=== PATIENT | female | born 1985 | race American Indian/Alaskan Native ===

== ENCOUNTER 2018-09-28 07:00 | Outpatient (CLI) | payer BC ==
--- NOTE | 2018-09-28 08:44 | Progress Note ---
Assessment and Plan A: at 40 weeks, 1 day gestation. Early labor versus false labor. Category 1 heart rate tracing. Not in active labor at this time. P: Patient requested to go home and return when in active labor. Discussed warning signs and signs of active labor with pt. Subjective - Subjective Date of service: 09/28/18 Interval history: at 40 weeks, 1 day gestation; rule out labor. Patient reports: contractions, no loss of fluid, no vaginal bleeding, no movement normal Objective - Vital Signs Vital Signs: Vital Signs - 12hr 09/28/18 09/28/18 09/28/18 07:19 07:24 07:28 Temperature 98.2 F Pulse Rate 69 80 Respiratory 16 Rate O2 Sat by Pulse 100 98 Oximetry 09/28/18 09/28/18 09/28/18 07:29 07:34 07:39 Temperature Pulse Rate 74 76 74 Respiratory Rate O2 Sat by Pulse 98 98 98 Oximetry 09/28/18 07:44 Temperature Pulse Rate 89 Respiratory Rate O2 Sat by Pulse 98 Oximetry - Exam Abdomen: Present: normal appearance, soft. Absent: distention, tenderness, guarding, rigidity Uterus: Present: normal, fundal height above umbilicus. Absent: bogginess, tenderness FHR: category 1 Uterine Contraction Monitor Mode: External Cervical Dilatation: 2.5 Cervical Effacement Percentage: 80 station: -2 Uterine Contraction Pattern: Irregular Uterine Contraction Intensity: Mild Extremities: normal
== END 2018-09-28 08:01 | disposition home or self-care (01) ==
LOC: TRG 07:00
PROVIDERS: ATTEND Obstetrics & Gynecology
DX: O62.8 Other abnormalities of forces of labor (principal); Z3A.40 40 weeks gestation of pregnancy
CPT/HCPCS: 59025

== ENCOUNTER 2018-09-28 20:04 | Inpatient (IN) | payer BC ==
[2018-09-28] MEDS ORDERED: SUBLIMAZE IV PRN (22:59)
[2018-09-28] MEDS ORDERED: XYLOCAINE 2% INFILTRATI ONE (22:59)
[2018-09-28] MEDS ORDERED: PITOCin/NS 20 UNIT/1000ML DRIP 20 UNITS/1,000 ML BAG IV SCH (23:00)
[2018-09-28] MEDS ORDERED: PITOCin/NS 30 UNIT/500ML 30 UNITS/500 ML BAG IV SCH ×2 (23:00→23:23)
--- NOTE | 2018-09-28 23:34 | History and Physical Report ---
History of Present Illness Date of examination: 09/28/18 Date of admission: 09/28/18 22:15 Chief complaint: Leaking of fluid from vagina. History of present illness: 33 year old presents to L&D with complaint of leaking clear fluid from vagina since 6:00 PM today. Patient denies vaginal bleeding. Patient reports contractions. Patient reports active movement. Patient received care at [facility] and records are available. LMP 12/21/2017. EDC 09/27/2018 (based on LMP and confirmed by 9 week US). significant for the following: anemia (supplemented with iron). labs are as follows: O+, antibody screen negative, pap smear normal, rubella immune, RPR nonreactive, HIV negative, hepatitis B surface antigen negative, hemoglobin AA, GC/CT negative, trichomonas negative, diabetes screen 105, GBS negative. 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 denies: smoking, alcohol abuse, prescription drug abuse, IV drug use - Obstetrical History Expected Date of Delivery: 09/27/18 Actual Gestation: 40 Week(s) 1 Day(s) : 1 Para: 0 Hx # Term Pregnancies: 1 Number of Pregnancies: 0 Spontaneous Abortions: 0 Induced : 0 Number of Living Children: 0 Medications and Allergies Allergies Allergy/AdvReac Type Severity Reaction Status Date / Time Penicillins Allergy Unknown Verified 09/28/18 20:16 Active Meds: Active Medications Ephedrine Sulfate (Ephedrine Sulfate) 10 mg IV Q2M PRN PRN Reason: Hypotension Fentanyl (Sublimaze) 100 mcg IV Q2H PRN PRN Reason: Labor Pain Lactated Ringer's (Lactated Ringers) 1,000 mls @ 125 mls/hr IV DIRECT MARGARETH Oxytocin/Sodium Chloride (Pitocin/Ns 20 Unit/1000ml Drip) 20 units in 1,000 mls @ 125 mls/hr IV DIRECT MARGARETH Oxytocin/Sodium Chloride (Pitocin/Ns 30 Unit/500ml) 30 units in 500 mls @ 2 mls/hr IV Q30MIN MARGARETH; Protocol Review of Systems All systems: negative (leaking of water from vagina) - Vital Signs Vital signs: Vital Signs Pulse BP 77 121/69 09/28/18 20:14 09/28/18 20:14 Temp Pulse Resp BP Pulse Ox 98.4 F 81 16 123/74 09/28/18 23:20 09/28/18 23:22 09/28/18 20:17 09/28/18 23:22 - Physical Exam Abdomen: Positive: normal appearance, soft. Negative: distention, tenderness, guarding, rigidity Genitourinary (Female): Positive: normal external genitalia, normal perenium. Negative: perineal/vulvar lesions Vagina: Positive: other (clear fluid at introitus) Uterus: Positive: enlarged. Negative: tender Anus/Rectum: Positive: normal perianal skin Extremities: Positive: normal. Negative: tenderness, edema - Obstetrical FHR: category 1 Uterine Contraction Monitor Mode: External Cervical Dilatation: 2.5 Cervical Effacement Percentage: 90 station: -1 Uterine Contraction Pattern: Irregular Uterine Contraction Intensity: Mild Results All other labs normal. Assessment and Plan A: at 40 weeks, 1 day gestation. GBS negative. Spontaneous rupture of membranes. Not yet in active labor. P: Admit. EFM. Pitocin augmentation of labor. Discussed with patient Pitocin augmentation of labor. Patient declines Pitocin augmentation of labor at this time; wants to wait until 1 AM to augment labor. Discussed prelabor rupture of membranes and ACOG recommendations with patient.
[2018-09-28 23:56] LABS: Hemoglobin 10.3 gm/dl (10.1-14.3); Mean Corpuscular HGB Conc 33 % (30-34); Mean Corpuscular Volume 86 fl (79-97); Platelet Count 164 K/mm3 (140-440); Red Blood Count 3.59 M/mm3 (3.65-5.03); Red Cell Distribution Width 18.5 % (13.2-15.2)
--- NOTE | 2018-09-29 01:47 | Event Note ---
Date: 09/29/18 SVE no cervical change. Advised patient I have ordered Pitocin for augmentation of labor due to leaking of water and no cervical change. Discussed with patient risks and benefits of Pitocin augmentation of labor. Discussed with patient need for EFM. Discussed with patient risks of PROM without active labor, risks of prolonged ROM including fever, chorioamnionitis with its possible sequelae, infection, etc. Patient declined augmentation of labor at this time. Consulted with Dr. Marc re: this patient and her refusal of labor augmentation.
[2018-09-29] MEDS: LACTATED RINGERS 1,000 ML IV SCH ×2 (02:49→11:40)
--- NOTE | 2018-09-29 08:05 | Progress Note ---
Assessment and Plan A: at 40 weeks, 2 days gestation. SROM. P: Augment labor with Pitocin. Discussed with patient risks and benefits of Pitocin augmentation of labor. Patient consented to Pitocin augmentation of labor. Subjective - Subjective Date of service: 09/29/18 Principal diagnosis: at 40 weeks, 2 days gestation Interval history: at 40 weeks, 2 days gestation with leaking of water. Patient has agreed to Pitocin augmentation of labor. Patient reports: loss of fluid, movement normal, contractions, no new complaints, no vaginal bleeding Objective - Vital Signs Vital Signs: Vital Signs - 12hr 09/28/18 09/28/18 09/28/18 20:14 20:17 23:20 Temperature 98.8 F 98.4 F Pulse Rate 77 77 Respiratory 16 Rate Blood Pressure 121/69 Blood Pressure 121/69 [Left] 09/28/18 23:22 Temperature Pulse Rate 81 Respiratory Rate Blood Pressure 123/74 Blood Pressure [Left] - Exam Abdomen: Present: normal appearance, soft. Absent: distention, tenderness, guarding, rigidity Uterus: Present: normal, fundal height above umbilicus. Absent: tenderness FHR: category 1 Uterine Contraction Monitor Mode: External Uterine Contraction Pattern: Irregular Uterine Contraction Intensity: Moderate Extremities: normal - Labs Labs: Abnormal Labs 09/28/18 23:35 RBC 3.59 L RDW 18.5 H Laboratory Results - last 24 hr 09/28/18 09/28/18 23:35 23:35 WBC 7.0 RBC 3.59 L Hgb 10.3 Hct 31.0 MCV 86 MCH 29 MCHC 33 RDW 18.5 H Plt Count 164 Blood Type O POSITIVE Antibody Screen Negative
--- NOTE | 2018-09-29 17:06 | Event Note ---
Date: 09/29/18 Spoke with patient several times re: need to be able to monitor her contractions and fetus while on Pitocin; patient is standing and sqatting by bed and difficult to trace contractions and FHR. Advised patient that if we cannot trace contractions and fetus, we will have to discontinue the Pitocin. Recommended IUPC and FSE; pt. declined.
--- NOTE | 2018-09-29 18:42 | Operative Report ---
Operative Report Operative Report: Date of procedure: 09/29/2018 Pre-operative diagnosis: 1. Intrauterine of 40-2/7 weeks 2. Prolon ged rupture of membranes. 3. Failure to progress Post-operative diagnosis: Same Procedure name(s): Primary low transverse section Surgeon: Dominic Marc MD International Logistics Analyst: None Anesthesia: Epidural anesthesia by Dr. Lacy EBL: 700 mL's Findings: A 2320 g female Apgars 9 at 1 minute 9 at 5 minutes. Clear amniotic fluid. Normal uterus. Normal tubes and ovaries bilaterally. Procedure: After the patient was prepped and draped in usual sterile fashion, and after satisfactory level of epidural anesthesia was obtained, the skin knife was used to make a transverse skin incision. The incision was excised down to layer of the fascia, which was nicked in the midline and extended laterally using the Bovie cautery. The rectus muscles were dissected off the rectus fascia both superiorly and inferiorly. The rectus bellies in the midline, and the peritoneum was entered under direct visualization. The peritoneal incision was extended superiorly and inferiorly. A bladder flap was created and the bladder blade was then placed. The uterus was scored in a curvilinear linear fashion, entered in the midline revealing clear amniotic fluid. The infant's head was delivered onto the surgical field with the aid of a vacuum, and the oropharynx and nasopharynx were bulb suctioned. The rest of the 's body was delivered, cord was doubly clamped and cut and the was handed to the waiting respiratory team. The placenta was manually removed from the uterus, and the uterus removed from its normal anatomical position. After gentle uterine lavage, the incision was inspected and found to be without extensions. It was then closed in 2 layers using 0 Vicryl suture in a running interlocking fashion, the second layer imbricating the first. After good hemo stasis was achieved, copious amounts or irrigation was performed, and the gutters were suctioned free of blood and blood clots. Tisseel sealant was sprayed across the uterine incision. The uterus was then returned to its normal anatomical position, and after excellent hemostasis assured, the peritoneum was re-approximated using 3-0 Vicryl suture in a running interlocking fashion, and then the rectus muscles were re-approximated using 3-0 Vicryl suture in a [id number] configuration. The fascia was then re-approximated using 0 Vicryl suture in running interlocking fashion. The subcutaneous layer was made hemostatic using Bovie cautery, the Tisseel sealant was sprayed across the fascial incision and the skin edges re-approximated using 4-0 Vicryl suture in a sub-cuticular fashion. Patient tolerated the procedure well was transported to recovery in stable condition.
--- NOTE | 2018-09-29 18:43 | Event Note ---
Date: 09/29/18 Patient states she feels like she needs to push. SVE 7 cm, -2 station, cervix starting to swell, feels thicker than before and head feels higher. Category 1 heart rate tracing. Difficult to trace contractions with patient standing and swaying and squatting; requested that patient try to rest in left lateral position, alternating to right lateral position intermittently to facilitate monitoring and contraction monitoring. Patient insists on standing or squatting by the bed. Advised pt. we will have to stop Pitocin since we are agnes ble to adequately monitor her with external EFM and she declined the internal monitoring. Will consult with Dr. Marc re: this patient due to slow progress of labor, cervical swelling, prolonged rupture of membranes, and difficulty performing needed interventions due to patient refusal.
[2018-09-29] MEDS ORDERED: NARCAN 2 MG/2 ML IV PRN (19:37)
--- NOTE | 2018-09-29 19:37 | Anesthesia Consultation ---
Anesthesia Consult and Med Hx Date of service: 09/29/18 - Airway Anesthetic Teeth Evaluation: Good ROM Head & Neck: Adequate Mental/Hyoid Distance: Adequate Mallampati Class: Class II Intubation Access Assessment: Probably Good - Pulmonary Exam CTA: Yes - Cardiac Exam Cardiac Exam: RRR - Pre-Operative Health Status ASA Pre-Surgery Classification: ASA2 Proposed Anesthetic Plan: Epidural - Pulmonary Hx Asthma: No COPD: No Hx Pneumonia: No - Cardiovascular System Hx Hypertension: No - Central Nervous System Hx Seizures: No Hx Psychiatric Problems: No - Endocrine Hx Renal Disease: No Hx End Stage Renal Disease: No Hx Hypothyroidism: No Hx Hyperthyroidism: No - Hematic Hx Anemia: No Hx Sickle Cell Disease: No - Other Systems Hx Alcohol Use: No
[2018-09-29] MEDS ORDERED: fentaNYL-BUPIV 2 MCG/ML-0.125% 200 MCG/100 ML BAG EPIDURAL SCH (20:00)
--- NOTE | 2018-09-29 23:17 | Event Note ---
Date: 09/29/18 Last temp. 97.9 about 1 hour ago. Now temp 99.9. IV antibiotics ordered. PO Tylenol given. No cervical change on SVE. Cervix is swollen. Discussed with patient and family need to expedite delivery. Will consult with Dr. Marc re: no further progress in labor and mild temp. elevation. Pt. to have section to expedite delivery if OK with Dr. Marc.
[2018-09-29] MEDS ORDERED: TYLENOL PO ONE (23:18)
[2018-09-29] MEDS ORDERED: CLEOCIN 900 MG/50 mL 900 MG/50 ML BAG IV SCH (23:23)
--- NOTE | 2018-09-29 23:28 | Event Note ---
Date: 09/29/18 Pitocin turned off. Discussed with patient and family need to expedite delivery and option for section. Patient is receiving IV antibiotics (Clindamycin and Gentamycin) and po Tylenol. Patient is afebrile but has low grade temp. elevation. Dr. Marc spoke with patient and family and decision was made to proceed with section.
[2018-09-29] MEDS ORDERED: GENTAMICIN/NS 80 MG/100 ML 100 ML IV SCH (23:45)
[2018-09-30] MEDS ORDERED: REGLAN IV ONE ×2 (00:03→00:08)
[2018-09-30] MEDS ORDERED: PEPCID IV ONE ×2 (00:03→00:08)
[2018-09-30] MEDS ORDERED: BICITRA PO ONE ×2 (00:03→00:08)
[2018-09-30] MEDS ORDERED: MARCAINE 0.25% INFILTRATI ONE (00:10)
[2018-09-30] MEDS ORDERED: XYLOCAINE 2%/ EPI 1:200,000 INFILTRATI ONE (00:11)
[2018-09-30] MEDS ORDERED: PITOCin/NS 20 UNIT/1000ML DRIP 20 UNITS/1,000 ML BAG IV SCH ×3 (01:00→03:00)
[2018-09-30] MEDS ORDERED: LACTATED RINGERS 1,000 ML IV SCH ×2 (01:00)
[2018-09-30] MEDS ORDERED: SUBLIMAZE ONE (01:20)
[2018-09-30] MEDS ORDERED: DILAUDID ONE (01:29)
--- NOTE | 2018-09-30 01:59 | Operative Report ---
Operative Report Operative Report: Date of procedure: 09/30/2018 Pre-operative diagnosis: 1. Intrauterine at 40-3/7 weeks 2. Prolo nged rupture of membranes 3. Failure to progress Post-operative diagnosis: Same Procedure name(s): Primary low transverse section Surgeon: Dominic Marc MD Boat Outfitting Supervisor: None Anesthesia: Epidural anesthesia by Deandre Longo CRNA EBL: 600 mL Findings: A 30-32 g female infant Apgars 8 at 1 minute and 9 at 5 minutes. Nuchal cord 1. Cloudy amniotic fluid. Uterus was multiple small fibroids and normal tubes and ovaries bilaterally. Procedure: After the patient was prepped and draped in usual sterile fashion, and after satisfactory level of epidural anesthesia was obtained, the skin knife was used to make a transverse skin incision. The incision was excised down to layer of the fascia, which was nicked in the midline and extended laterally using the Bovie cautery. The rectus muscles were dissected off the rectus fascia both superiorly and inferiorly. The rectus bellies in the midline, and the peritoneum was entered under direct visualization. The peritoneal incision was extended superiorly and inferiorly. A bladder flap was created and the bladder blade was then placed. The uterus was scored in a curvilinear linear fashion, entered in the midline revealing clear amniotic fluid. The infant's head was delivered onto the surgical field, and the oropharynx and nasopharynx were bulb suctioned. The rest of the 's body was delivered, cord was doubly clamped and cut and the infant was handed to the waiting respiratory team. Cord blood was then obtained. The placenta was manually removed from the uterus, and the uterus removed from its normal anatomical position. After gentle uterine lavage, the incision was inspected and found to be without extensions. It was then closed in 2 layers using 0 Vicryl suture in a running interlocking fashion, the second layer imbricating the first. After good hemostasis was achieved, copious amounts or irrigation was performed, and the gutters were suctioned free of blood and blood clots. Tisseel sealant was sprayed across the uterine incision. The uterus which had multiple small fibroids was then returned to its normal anatomical position, and after excellent hemostasis assured, the peritoneum was re-approximated using 3-0 Vicryl suture in a running interlocking fashion, and then the rectus muscles were re-approximated using 3-0 Vicryl suture in a [id number] configuration. The fascia was then re-approximated using 0 Vicryl suture in running interlocking fashion. The subcutaneous layer was made hemostatic using Bovie cautery, the Tisseel sealant was sprayed across the fascial incision and the skin edges re-approximated using 4-0 Vicryl suture in a sub-cuticular fashion. Patient tolerated the procedure well was transported to recovery in stable condition.
[2018-09-30] MEDS ORDERED: TORADOL IV PRN (02:07)
[2018-09-30] MEDS ORDERED: TYLENOL PO PRN (02:07)
[2018-09-30] MEDS ORDERED: NARCAN 0.4 MG/1 ML IV PRN (02:07)
[2018-09-30] MEDS ORDERED: PHENERGAN PR PRN (02:07)
[2018-09-30] MEDS ORDERED: TUCKS PAD TP PRN (02:07)
[2018-09-30] MEDS ORDERED: ZOFRAN IV PRN (02:07)
[2018-09-30] MEDS ORDERED: SENOKOT PO PRN (02:07)
[2018-09-30] MEDS ORDERED: MYLICON PO PRN (02:07)
[2018-09-30] MEDS ORDERED: D5LR 1,000 ML IV SCH (03:00)
[2018-09-30] MEDS ORDERED: SODIUM CHLORIDE FLUSH SYRINGE 10 ML IV PRN (03:00)
[2018-09-30] MEDS: CLEOCIN 600 MG/50 mL 600 MG/50 ML BAG IV SCH ×2 (09:00→18:10)
[2018-09-30] MEDS: LANSINOH TP PRN (09:16)
--- NOTE | 2018-09-30 09:44 | Post Anesthesia Evaluation ---
- Post Anesthesia Evaluation Patient Participated: Yes Airway Patent: Yes Stable Respiratory Function: Yes Nausea/Vomiting: No Temp > 96.8F: No Pain Manageable: Yes Adequeate Hydration: Yes Anesthesia Complications: No Block Receding Appropriately: Yes Patient on Ventilator: No
[2018-09-30] MEDS ORDERED: PRENATAL VITAMIN PO SCH (10:00)
[2018-09-30] MEDS ORDERED: FEOSOL PO SCH (10:00)
[2018-09-30 15:20] LABS: Hematocrit 25.4 % (30.3-42.9); Hemoglobin 8.6 gm/dl (10.1-14.3)
[2018-09-30] MEDS: PERCOCET 5/325 PO PRN (17:40)
[2018-09-30] MEDS: IBUPROFEN PO PRN (21:34)
[2018-09-30] MEDS: NORCO 5/325 PO PRN (23:27)
[2018-10-01] MEDS: BENADRYL PO PRN ×3 (00:27→21:09)
[2018-10-01] MEDS ORDERED: M-M-R II VACCINE SUB-Q ONE (02:08)
[2018-10-01] MEDS: IBUPROFEN PO PRN ×3 (03:34→15:03)
[2018-10-01] MEDS ORDERED: BOOSTRIX IM ONE (06:00)
[2018-10-01] MEDS: NORCO 5/325 PO PRN (09:16)
--- NOTE | 2018-10-01 09:24 | Progress Note ---
Assessment and Plan A: 33 yo, @ POD1 Incision dry and intact, dressed Anemia O+ blood type P: Continue routine PP orders Infed 100 mg IM x 1 dose Continue po iron supplementation as ordered Consult with supply chain consultant Anticipate d/c home in 24-48 hrs Subjective - Subjective Date of service: 10/01/18 ([id number]) Principal diagnosis: at 40 weeks, 2 days gestation Interval history: See Admission H & P and operative report summary. Patient reports: appetite normal, voiding normally, pain well controlled, flatus, ambulating normally, no bowel movement : doing well, other (Breast feeding, some education given on proper latch.) Objective - Vital Signs Latest vital signs: Vital Signs Temp Pulse Resp BP BP Pulse Ox 10/01/18 07:30 98.6 F 94 H 18 123/73 10/01/18 03:34 18 10/01/18 00:00 98.0 F 82 20 118/64 96 09/30/18 23:27 18 09/30/18 21:34 18 09/30/18 20:00 98.2 F 88 20 116/73 96 09/30/18 16:52 98.7 F 88 18 108/65 99 09/30/18 11:32 98.5 F 87 18 102/53 96 Intake and Output 09/30/18 10/01/18 10/01/18 23:59 07:59 15:59 Intake Total 180 480 Output Total 300 Balance -120 480 Intake: Oral 180 480 Output: Urine 300 Void 300 Other: Total, Intake Amount 120 480 Total, Output Amount 300 # Voids Void 1 - Exam Breasts: Present: , tender (some nipple tenderness) Cardiovascular: Present: Regular rate Lungs: Present: Clear to auscultation, Normal air movement Abdomen: Present: soft, normal bowel sounds Uterus: Present: firm, fundal height at umbilicus Extremities: Present: normal Deep Tendon Reflex Grade: Normal +2 Incision: Present: dressed (no shadow bleeding noted) - Labs Labs: Abnormal lab results 09/30/18 Range/Units 15:06 Hgb 8.6 L (10.1-14.3) gm/dl Hct 25.4 L (30.3-42.9) %
[2018-10-01] MEDS ORDERED: INFED IM ONE (12:00)
[2018-10-01] MEDS ORDERED: FEOSOL PO SCH (12:00)
[2018-10-01] MEDS: PERCOCET 5/325 PO PRN (15:04)
[2018-10-02] MEDS: IBUPROFEN PO PRN ×2 (01:32→12:45)
--- NOTE | 2018-10-02 10:37 | Progress Note ---
Assessment and Plan A: POD #2 Asymptomatic Anemia P: Follow Routine PostOp Orders Continue FeSO4 as ordered D/C Home today per patient request RTO in One Week Subjective - Subjective Date of service: 10/02/18 Principal diagnosis: at 40 weeks, 2 days gestation Patient reports: appetite normal, voiding normally, pain well controlled, flatus, bowel movement, ambulating normally [place]: doing well Objective - Vital Signs Latest vital signs: Vital Signs Temp Pulse Resp BP Pulse Ox 10/02/18 09:00 95 H 98 10/01/18 23:45 98.3 F 87 18 124/67 98 10/01/18 15:54 98.6 F 99 H 18 114/61 10/01/18 15:04 18 10/01/18 15:03 18 Intake and Output 10/01/18 10/02/18 10/02/18 22:59 06:59 14:59 Intake Total 480 Balance 480 Intake: Oral 480 Other: Total, Intake Amount 480 - Exam Breasts: Present: normal Cardiovascular: Present: Regular rate Lungs: Present: Clear to auscultation, Normal air movement Abdomen: Present: normal appearance, soft, normal bowel sounds Uterus: Present: normal, firm, fundal height below umbilicus Incision: Present: normal, dry, intact
--- NOTE | 2018-10-02 10:38 | Discharge Summary ---
Providers - Providers Date of Admission: 09/28/18 22:15 Date of discharge: 10/02/18 Attending physician: CHARY TOBAR MD Primary care physician: CHARY TOBAR MD Hospitalization Reason for admission: rupture of membranes Delivery: Procedure: primary low transverse Episiotomy: none Laceration: none Incision: normal, dry, intact Other procedures: none complications: none Discharge diagnosis: IUP at term delivered baby: female Condition at discharge: Good Disposition: DC-01 TO HOME OR SELFCARE Plan - Discharge Medications Prescriptions: Ferrous Sulfate [Feosol 325 MG tab] 325 mg PO BID #60 tablet Ibuprofen [Motrin] 800 mg PO Q8HR PRN #30 tablet PRN Reason: Pain, Mild (1-3) HYDROcodone/APAP 5-325 [[place] 5/325] 1 each PO Q6HR PRN #30 tablet PRN Reason: Pain Pnv No.95/Ferrous Fum/Folic AC [Prenavite Tablet] 1 each PO DAILY #30 tablet - Provider Discharge Summary Activity: routine, no sex for 6 weeks, no heavy lifting 4 weeks, no strenuous exercise Diet: routine Instructions: routine Additional instructions: [] Smoking cessation referral if applicable(refer to patient education folder for contact #) [] Refer to [facility] Booklet Call your doctor immediately for: * Fever > 100.5 * Heavy vaginal bleeding ( >1 pad per hour) * Severe persistent headache * Shortness of breath * Reddened, hot, painful area to leg or breast * Drainage or odor from incision. * Keep incision clean and dry at all times and follow doctor's instructions regarding bathing/showering - Follow up plan Follow up: CHARY TOBAR MD [Primary Care Provider] - 7 Days
[2018-10-02] MEDS: LANSINOH TP PRN (12:46)
[2018-10-02 16:41] VITALS: BP 111/75
== END 2018-10-02 19:45 | disposition home or self-care (01) | DRG 788 ==
LOC: TRG 20:04 → LD 22:15 → OB 09-30 03:57
PROVIDERS: ADMIT Obstetrics & Gynecology; ATTEND Obstetrics & Gynecology
PROC: 10D00Z1 Extraction of Products of Conception, Low, Open Approach (ICD-10-PCS; principal; 2018-09-30)
PROC: 3E0234Z Introduction of Serum, Toxoid and Vaccine into Muscle, Percutaneous Approach (ICD-10-PCS; 2018-10-01)
DX: O42.92 Full-term premature rupture of membranes, unspecified as to length of time between rupture and onset of labor (principal); O62.0 Primary inadequate contractions; O99.02 Anemia complicating childbirth; D64.9 Anemia, unspecified; Z83.3 Family history of diabetes mellitus; Z3A.40 40 weeks gestation of pregnancy; Z37.0 Single live birth; Z82.49 Family history of ischemic heart disease and other diseases of the circulatory system; Z80.9 Family history of malignant neoplasm, unspecified; Z88.0 Allergy status to penicillin; Z23 Encounter for immunization
CPT/HCPCS: 36415; 85014; 85018; 85027; 86592; 86850; 86900; 86901; G0378; A6250; J1170; J1580; J1750; J1885; J2590; J3010; J7120; J7121